=== PATIENT | male | born 1950 ===

== ENCOUNTER 2017-10-07 13:30 | Emergency (ER) | payer MEDICARE ==
--- NOTE | 2017-10-07 14:56 | EDM.PDOC ---
ED HPI GENERAL MEDICAL PROBLEM - General Chief Complaint: Lower Extremity Injury/Pain Stated Complaint: PAIN IN BIG TOE ON THE RIGHT FOOT Time Seen by Provider: 10/07/17 13:59 Source of Information: Reports: Patient History Limitations: Reports: No Limitations - History of Present Illness INITIAL COMMENTS - FREE TEXT/NARRATIVE: HISTORY AND PHYSICAL: History of present illness: 67-year-old male presenting emergency department with chief complaint of right big toe pain 3 days with past medical history of gout. Patient states 2 days ago his right big toe began to be painful. He has had some increased warmth as well as mild erythema. Patient has had a history of gout and states that his symptoms are similar however he also has had similar episodes of an infected ingrown toenail. He is had toe surgical excisions of the great big toe on that side secondary to ingrown toenail. He denies any fever , chills, nausea, vomiting, abdominal pain, or other signs of systemic infection. In generally been feeling otherwise healthy. Review of systems: As per history of present illness and below otherwise all systems reviewed and negative. Past medical history: As per history of present illness and as reviewed below otherwise noncontributory. Surgical history: As per history of present illness and as reviewed below otherwise noncontributory. Social history: No reported history of drug or alcohol abuse. Family history: As per history of present illness and as reviewed below otherwise noncontributory. Physical exam: HEENT: Atraumatic, normocephalic, pupils reactive, negative for conjunctival pallor or scleral icterus, mucous membranes moist, throat clear, neck supple, nontender, trachea midline. Lungs: Clear to auscultation, breath sounds equal bilaterally, chest nontender. Heart: S1S2, regular, negative for clicks, rubs, or JVD. Abdomen: Soft, nondistended, nontender. Negative for masses or hepatosplenomegaly. Negative for costovertebral tenderness. Pelvis: Stable nontender. Genitourinary: Deferred. Rectal: Deferred. Extremities: There is tenderness to the great right toe with mild erythema no signs of infection. Atraumatic, negative for cords or calf pain. Neurovascular unremarkable. Neuro: Awake, alert, oriented. Cranial nerves II through XII unremarkable. Cerebellum unremarkable. Motor and sensory unremarkable throughout. Exam nonfocal. Diagnostics: Left great toe x-ray Therapeutics: Colchicine 1.2 mg 1 followed by 1 hour later 0.6 mg 1, then 0.6 mg by mouth twice a day 6 days Impression: Acute gouty flare right big toe Plan: Most likely acute gouty flareup. Patient has had improvement before with colchicine which we will provide for him today. Patient does have a significant cardiac history so we'll stay away from NSAIDs at this time. Instructed patient to follow-up with her primary care provider on Monday as well as return to emergency department if he had any new or worsening symptoms. Right Toe Pain Score (Numeric/FACES): 7 - Related Data Allergies Allergy/AdvReac Type Severity Reaction Status Date / Time No Known Allergies Allergy Verified 10/07/17 15:13 Home Meds: Home Meds Aspirin 81 mg PO DAILY 10/07/17 [History] Hydrochlorothiazide 25 mg PO DAILY 10/07/17 [History] Lisinopril 10 mg PO DAILY 10/07/17 [History] Rivaroxaban [Xarelto] 20 mg PO DAILY 10/07/17 [History] Sotalol HCl [Sotalol] 120 mg PO BID 10/07/17 [History] Tamsulosin [Tamsulosin 24 Hr] 0.4 mg PO DAILY 10/07/17 [History] atorvaSTATin [Lipitor] 20 mg PO DAILY 10/07/17 [History] glipiZIDE [Glipizide ER] 10 mg PO DAILY 10/07/17 [History] metFORMIN HCl [Metformin HCl] 2,500 mg PO ASDIRECTED 10/07/17 [History] Review of Systems - Review of Systems Review Of Systems: ROS reveals no pertinent complaints other than HPI. ED EXAM, GENERAL - Physical Exam Exam: See Below Course - Vital Signs Last Recorded V/S: Last Vital Signs Temp 97.8 F 10/07/17 15:19 Pulse 93 10/07/17 15:19 Resp 18 10/07/17 15:19 BP 146/76 H 10/07/17 15:19 Pulse Ox 95 10/07/17 15:19 - Orders/Labs/Meds Orders: Active Orders 24 hr Category Date Time Status Foot 2V Rt [CR] Stat Exams 10/07/17 14:22 Taken Departure - Departure Time of Disposition: 15:59 Disposition: Home, Self-Care 01 Condition: Good Clinical Impression: Gout attack Qualifiers: Gout site: toe Gout etiology: unspecified cause Laterality: right Qualified Code(s): M10.9 - Gout, unspecified - Discharge Information Referrals: PCP,None [Primary Care Provider] - Forms: ED Department Discharge Additional Instructions: My general discharge The following information is given to patients seen in the emergency department who are being discharged to home. This information is to outline your options for follow-up care. We provide all patients seen in our emergency department with a follow-up referral. The need for follow-up, as well as the timing and circumstances, are variable depending upon the specifics of your emergency department visit. If you don't have a primary care physician on staff, we will provide you with a referral. We always advise you to contact your personal physician following an emergency department visit to inform them of the circumstance of the visit and for follow-up with them and/or the need for any referrals to a consulting specialist. The emergency department will also refer you to a specialist when appropriate. This referral assures that you have the opportunity for follow-up care with a specialist. All of these measure are taken in an effort to provide you with optimal care, which includes your follow-up. Under all circumstances we always encourage you to contact your private physician who remains a resource for coordinating your care. When calling for follow-up care, please make the office aware that this follow-up is from your recent emergency room visit. If for any reason you are refused follow-up, please contact the [facility] Emergency Department at and asked to speak to the emergency department charge nurse. [facility] [address] [place] [id number] [id number] Take medication as prescribed. Return emergency department if any new or worsening symptoms. Follow-up with primary care provider.
--- NOTE | 2017-10-09 14:05 | CR ---
EXAM DATE: 10/07/17 PATIENT'S AGE: 67 Patient: JAZMINE WESTBROOK Facility: [place], [place] Site . Site : [id number] Study: XRay Extremity [id number] 3:03:52 PM Ordering Physician: Neptali Granado Final Report: INDICATION: Pain and swelling big toe x2 days. TECHNIQUE: Two views. FINDINGS: No radiographic evidence of fracture/dislocation/acute bone or joint abnormality. Nonspecific soft tissue swelling at the medial aspect of 1st MTP joint. No articular abnormalities. Small osteophytes are present about this joint. Plantar and posterior calcaneal enthesophytes. IMPRESSION: Nonspecific soft tissue swelling about the base of the big toe. No underlying bony abnormality. Mild degenerative joint space narrowing. Dictated by Brad Davis MD @ Oct 07 2017 3:23PM (Electronic Signature) Report Signed by Proxy. EVELYN
== END 2017-10-07 16:15 | disposition home or self-care (01) ==
LOC: MW.ED 13:30
DX: M10.9 Gout, unspecified (principal); Z79.82 Long term (current) use of aspirin; Z79.899 Other long term (current) drug therapy
CPT/HCPCS: 73620-26-RT; 73620-RT; 99283